=== PATIENT | male | born 1970 | race Caucasian/White ===

== ENCOUNTER 2023-02-27 08:15 | Inpatient (IN) | payer OTHER, SELFPAY ==
[2023-02-27] VITALS (63 sets, daily range): BP systolic 117–238; BP diastolic 110–147; PULSE 85–116; RESP 11–31; TEMP 36.4–36.5; O2SAT 87–100; BMI 35.3
--- NOTE | 2023-02-27 | ECHO_ITS ---
Patient Info Name: Dave Cooper Age: 52 years : 1970 Gender: Male Ht: 70 in Wt: 240 lbs BSA: 2.36 m2 HR: 94 bpm BP: 169 / 125 mmHg Heart Rhythm: Sinus Rhythm Technical Quality: Fair Exam Date: 02/27/2023 4:20 PM Exam Location: Echo Lab Exam Room: [place] [id number] Patient Status: Inpatient Admit Date: 02/27/2023 Staff Ordering Physician: Abril Perez APRN Stopper Maker Helper: Elizabeth Mcginnis RDCS Attending Provider: Dany Avila MD Referring Physician: Ana CHANDLER; Exam Type: CA echo dop color flow w con Study Info Indications - NEW HEART FAILURE Complete two-dimensional, color flow and Doppler transthoracic echocardiogram is performed with contrast to opacify the left ventricle and to improve the deliniation of the left ventricle endocardial borders. Contrast/Agitated Saline Contrast/Ag. Saline: Definity Amount: 2.00 ml Administered By: Elizabeth Mcginnis [facility] Existing IV Access: Yes IV Access Condition: patent with no signs of infiltration Summary 1. Technically difficult exam, definity contrast used to improve visualization. 2. Concentric left ventricular hypertrophy with mild LV enlargement and mildly depressed systolic function. 3. Enlarged left atrium. 4. Structurally normal appearing mitral valve with moderate MR. Left Ventricle Left ventricular chamber dimension is mildly enlarged. Left ventricular systolic function is mildly reduced, estimated at 45-50%. There is mild concentric increased left ventricular wall thickness. The left ventricular diastolic function is grade I diastolic dysfunction. Right Ventricle Right ventricular chamber dimension is normal. Left Atria Left atrial chamber dimension is moderately enlarged. Right Atria Right atrial chamber dimension is normal. Aortic Valve The aortic valve is normal. Pulmonic Valve The pulmonic valve is not well visualized. Mitral Valve The mitral valve has normal leaflets. There is moderate mitral valve regurgitation. Tricuspid Valve The tricuspid valve leaflets are normal. Pericardium/Pleural The pericardium appears normal. Aorta The aortic root size at the sinus of Valsalva is normal. Left Ventricular Outflow Tract Name Value Normal LVOT 2D LVOT Diameter 2.15 cm LVOT Doppler LVOT Peak Gradient 5 mmHg LVOT Mean Gradient 3 mmHg LVOT VTI 15.51 cm LVOT VTI/AV VTI Ratio 0.83 LVOT Stroke Volume 56.08 ml LVOT CO 17.17 l/min LVOT CI 7.28 L/min/m2 Pulmonic Valve Name Value Normal RVOT Doppler RVOT Peak Gradient 1 mmHg PV Doppler PV Peak Gradient 2 mmHg Mitral Valve
--- NOTE | ~2023-02-27 | CT_ITS ---
EXAMINATION: CTA chest PE protocol DATE: 02/27/2023 12:12 INDICATION: Shortness of breath TECHNIQUE: Computed tomography angiography (CTA) of the chest was performed with 100 mL Omnipaque-350 intravenous contrast timed to evaluate the pulmonary arteries. Coronal maximum intensity projection 3D-reconstructions were created by the technologist. The dose-length product (DLP) was 891.07 mGy-cm. Automated exposure control and iterative reconstruction technique were employed. COMPARISON: None. FINDINGS: The pulmonary arteries are well-opacified. No pulmonary embolism is identified. There are s mall pleural effusions. No pneumothorax is identified. Cardiomegaly is noted. There is mild emphysema . There is smooth interlobular septal thickening of the lung bases. There are minimal groundglass opa cities of the lung bases. There is a 4 mm nodule of the left lower lobe on image 84. There is mild me diastinal and bilateral hilar lymphadenopathy. IMPRESSION: 1. Cardiomegaly with mild pulmonary edema in the lung bases. 2. Small pleural effusions. 3. No pulmonary embolus identified. Reviewed, dictated and finalized at location L. URCE ROOM SPECIAL EDUCATION TEACHER
--- NOTE | ~2023-02-27 | XR_ITS ---
EXAMINATION: XR chest 1V portable INDICATION: Shortness of breath TECHNIQUE: Portable AP chest at 0849 hours COMPARISON: None available FINDINGS: There is a mild diffuse interstitial pattern. Cardiomegaly is noted. There are small pleura l effusions. No pneumothorax is identified. Surgical clips are noted in the neck. IMPRESSION: 1. Cardiomegaly with mild pulmonary edema. 2. Small pleural effusions. Reviewed, dictated and finalized at location D. GAGE BROKER
--- NOTE | ~2023-02-27 | US_ITS ---
EXAMINATION: US retroperitoneal duplex ltd DATE: 03/01/2023 15:08 SUPERVISOR WOOL SHEARING INDICATION: Accelerated hypertension. TECHNIQUE: Sonographic imaging of the kidneys was performed with a 3.5 MHz transducer. Retroperitone al duplex sonogram of the renal arteries also obtained. FINDINGS: No focal flow abnormalities are seen in the renal arteries on color Doppler. The peak syst olic velocity ranges of the right and left renal arteries and aorta are 91 cm per second, 45 cm per s econd, and 95 cm per second, respectively. The velocities and renal to aortic ratios are within guido l limits. Renal echotexture is normal bilaterally without hydronephrosis, mass or stone. Right kidney measures 10 cm. Left kidney measures 11.9 cm. IMPRESSION: 1. No Doppler evidence of renal artery stenosis. Reviewed, dictated and finalized at location A. RVISOR WOOL SHEARING
--- NOTE | ~2023-02-27 | US_ITS ---
EXAMINATION: US renal BI DATE: 02/28/2023 09:45 INDICATION: Hypertension TECHNIQUE: Multiple grayscale and Doppler ultrasound images of the kidneys were obtained. COMPARISON: None. FINDINGS: The right kidney measures 9.9 x 4.9 x 5.2 cm. The left kidney measures 11.1 x 6.1 x 5.3 cm. The kidneys demonstrate normal parenchymal echogenicity. There is no hydronephrosis. The bladder is normal. IMPRESSION: 1. Normal kidneys without hydronephrosis. Reviewed, dictated and finalized at location B. UTER ANIMATOR
--- NOTE | 2023-02-27 08:35 | ECG_ITS ---
Measurements Intervals [place] Rate: 109 P: 43 MA: 120 QRS: 80 QRSD: 146 T: 12 QT: 395 QTc: 533 Interpretive Statements SINUS TACHYCARDIA LEFT ATRIAL ENLARGEMENT [-0.15mV P WAVE IN V1/V2] I RIGHT BUNDLE BRANCH BLOCK ABNORMAL ECG NO PREVIOUS ECG AVAILABLE FOR COMPARISON Electronically Signed On 02-27-2023 17:43:53 MEAT PACKER by Dave Contreras M.D.
[2023-02-27 08:43] LABS: Basophils Absolute Auto 0.1 K/mm3 (0.0-0.1); Basophils Percent Auto 0.5 % (0.2-1.2); Eosinophils Absolute Auto 0.2 K/mm3 (0-0.3); Eosinophils Percent Auto 1.3 % (0-4.4); Hematocrit 39.7 % (42.0-52.0); Hemoglobin 12.6 g/dL (14.0-18.0); Immature Granulocyte Absolute 0.05 K/mm3 (0.00-0.031); Immature Granulocyte Percent A 0.4 % (0-0.5); Lymphocytes Absolute Auto 2.18 K/mm3 (0.9-3.2); Lymphocytes Percent Auto 17.7 % (18.3-44.2); Mean Corpuscular HGB Conc 31.7 g/dl (32-36); Mean Corpuscular Hemoglobin 26.4 pg (26-34); Mean Corpuscular Volume 83.2 fl (80-100); Mean Platelet Volume 8.8 fl (7.4-10.4); Monocytes Absolute Auto 0.8 K/mm3 (0.1-0.6); Monocytes Percent Auto 6.5 % (2.6-8.5); Neutrophils Absolute Auto 9.1 K/mm3 (1.3-6.7); Neutrophils Percent Auto 73.6 % (45.5-73.1); Platelet Count Result 294 k/mm3 (150-375); Red Blood Count 4.77 M/mm3 (4.6-6.20); White Blood Count 12.3 K/mm3 (4.5-10.0)
[2023-02-27 08:52] LABS: Alanine Aminotransferase 43 U/L (6-50); Albumin Level 4.3 g/dL (3.5-5.1); Alkaline Phosphatase 117 U/L (38-126); Anion Gap 8 mmol/L (8-16); Aspartate Amino Transferase 31 U/L (17-59); Bilirubin,Total 0.6 mg/dL (0.2-1.3); Blood Urea Nitrogen 22 mg/dL (9-20); Carbon Dioxide 26 mmol/L (22-30); Chloride 105 mmol/L (98-107); Estimated CRCL calculation 57 ml/min; Estimated Glomerular Filt Rate 43; Glucose 138 mg/dL (65-110); Potassium 3.5 mmol/L (3.4-5.0); Sodium 139 mmol/L (137-145)
[2023-02-27 09:01] LABS: Prothrombin Time 13.5 Seconds (11.1-14.7)
[2023-02-27 09:06] LABS: NT Pro B Type Natriuretic Pept 6270 pg/mL (19.9-100); Troponin I 0.118 ng/mL (0.000-0.034)
[2023-02-27 09:10] LABS: Partial Thromboplastin Time 29.2 SECONDS (22.3-36.8)
[2023-02-27 09:28] LABS: Influenza A QL RT-PCR Negative (Negative); Influenza B QL RT-PCR Negative (Negative); RSV RNA, RT-PCR Negative (Negative); SARS-CoV-2 RNA PCR Negative (Negative)
[2023-02-27] MEDS: LABETALOL HCL INJ 100 MG/20 ML VIAL 20 MG IV PUSH ×2 (10:21→17:33)
[2023-02-27] MEDS: FUROSEMIDE INJ 40 MG/4 ML VIAL IV PUSH ×2 (10:21→20:20)
[2023-02-27 10:24] LABS: Magnesium 2.2 mg/dL (1.6-2.3)
--- NOTE | 2023-02-27 10:32 | ED.GENADULT ---
HPI - General Adult General Chief complaint: Upper Respiratory Infection <DENISE Leahy Last Filed: 02/27/23 14:46> Stated complaint: CONGESTION X2WKS <DENISE Leahy Last Filed: 02/27/23 14:46> Time Seen by Provider: 02/27/23 08:56 <DENISE Leahy Last Filed: 02/27/23 14:46> Source: patient <DENISE Leahy Last Filed: 02/27/23 14:46> Mode of arrival: ambulatory <DENISE Leahy Last Filed: 02/27/23 14:46> Limitations: no limitations <DENISE Leahy Last Filed: 02/27/23 14:46> History of Present Illness HPI narrative: Patient is a 52-year-old male, with past medical history of hypertension, CAD status post coronary stenting in 2011, who presents the ED with report of shortness of breath. Patient reports over the last 3 weeks he has been feeling increasingly short of breath, worse with exertion and lying flat. He also reports chest congestion, mild BLE swelling, occasional cough. Denies sick contacts. Denies chest pain. Denies fevers. Patient notes that he has been out of his home medications for the last several months. He states he does not have a primary care doctor. 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 Per med rec, medications include Plavix, simvastatin, lisinopril, sertraline, Trazodone, sildenafil. Patient does not routinely monitor blood pressures at home. <Arabella Calvillo PA-C - Last Filed: 02/27/23 14:46> Related Data Allergies/adverse reactions: Allergies Allergy/AdvReac Type Severity Reaction Status Date / Time No Known Allergies Allergy Verified 02/27/23 08:34 <DENISE Leahy Last Filed: 02/27/23 14:46> Review of Systems Review of Systems: CONSTITUTIONAL: Denies fever, chills, or sweats. ENT: See HPI CARDIOVASCULAR: See HPI. RESPIRATORY: See HPI. GASTROINTESTINAL: Denies abdominal pain, nausea, vomiting. NEUROLOGIC: Denies headache, dizziness, numbness, or weakness. <Arabella Cavlillo PA-C - Last Filed: 02/27/23 14:46> All systems reviewed & are unremarkable except as noted in HPI and below <Arabella Calvillo PA-C - Last Filed: 02/27/23 14:46> [facility] Social History Social History: Social History Smoking packs per day: 0.5 Smoking cigarettes per day: 10.0 Years smoked: 30 Smoking pack-years: 15.00 Smoking status: Current every day smoker Alcohol intake: never Substance use: never Do You Feel Safe in your Home?: Yes Lack of Transportation: No Lack of Food: Never True Current Housing: I Have Housing Concerned About Future Housing: No Difficulty Paying Gas/Electric Bills: No Difficulty Paying for Meds: No Currently Unemployed: No Education: High School Diploma/GED Difficulty w/ Childcare or Family Care: No Spiritual care concerns: No <Arabella Calvillo PA-C - Last Filed: 02/27/23 14:46> Exam Narrative: GENERAL: Well appearing, obese with BMI of 34.5, non-toxic, in no acute distress. HEAD: Normocephalic, atraumatic. RESPIRATORY: Airway patent, respirations nonlabored. Rhonchi throughout the bases bilaterally. CARDIOVASCULAR: Tachycardic with regular rhythm without murmurs, rubs, or gallops. Radial pulses 2+ ABDOMINAL: Soft, nontender, nondistended. Normoactive BS. MUSCULOSKELETAL: Moves all extremities. No gross deformities. Trace pitting edema throughout lower extremities bilaterally. No significant calf tenderness. SKIN: Warm, dry, normal color. NEURO: A&O X3. Speech clear. Cranial nerves II-XII grossly intact. Steady gait. No ataxic movements. PSYCHIATRIC: Appropriate mood and affect. Normal interaction. <Arabella Calvillo PA-C - Last Filed: 02/27/23 14:46> Course TIMBER WATCHMAN/PA Physician Supervision TIMBER WATCHMAN/PA discussed patient with me including HPI, vital signs, and results of labs and CXR. I concur with management
--- NOTE | 2023-02-27 11:13 | ECG_ITS ---
Measurements Intervals [place] Rate: 91 P: 55 [place]: 124 QRS: 84 QRSD: 143 T: 44 QT: 432 QTc: 533 Interpretive Statements SINUS RHYTHM WITH PACS LEFT ATRIAL ENLARGEMENT [-0.15mV P WAVE IN V1/V2] RIGHT BUNDLE BRANCH BLOCK ABNORMAL ECG WARNING: DATA QUALITY MAY AFFECT INTERPRETATION COMPARED TO ECG 02/27/2023 08:45:58 NO DIFFERENCE Electronically Signed On 02-27-2023 17:57:36 RESERVATION MANAGER by Dave Contreras M.D.
[2023-02-27 12:11] LABS: Troponin I 0.117 ng/mL (0.000-0.034)
--- NOTE | 2023-02-27 13:19 | PC.NURSE ---
called dietary and ordered a lunch tray for pt at this time
--- NOTE | 2023-02-27 14:51 | ECG_ITS ---
Measurements Intervals [place] Rate: 89 P: 5 NE: 154 QRS: 78 QRSD: 146 T: 52 QT: 441 QTc: 537 Interpretive Statements SINUS RHYTHM RIGHT BUNDLE BRANCH BLOCK ABNORMAL ECG COMPARED TO ECG 02/27/2023 11:40:38 NO DIFFERENCE Electronically Signed On 02-27-2023 18:08:37 INNER LAYER SCRUBBER TENDER by Dave Contreras M.D.
[2023-02-27 15:23] LABS: Troponin I 0.106 ng/mL (0.000-0.034)
--- NOTE | 2023-02-27 16:31 | PC.NURSE ---
called dietary and requested dinner tray for pt at this time
[2023-02-27] MEDS: PERFLUTREN LIPID MICROSPHERES 1.5 ML VIAL DILUTED TO 10 ML TOTAL VOLUME IV PUSH (16:45)
--- NOTE | 2023-02-27 17:01 | IVDEFINITY ---
Prior to administration of IV Definity the patient was educated on the risks and benefits of the imaging enhancing agent including potential adverse side effects. The patient verbalized understanding. Allergies were verified. No exclusion criteria were identified and at least one of the following inclusion criteria were met: 1) physician request, 2) patient technically difficult to image (per the [place] [employer] Echocardi[employer] guidelines of two or more segments not discernable within the apical view), or 3) questionable left ventricular function. ?
--- NOTE | 2023-02-27 17:15 | PC.NURSE ---
BP 208/146. Pt asymptomatic. SADIQ Samuels made aware. New orders noted. Target BP 170s/110s. Only give Lisinopril if BP remains elevated. Do not drop BP >40 points.
--- NOTE | 2023-02-27 17:27 | ADMGEN ---
This patient, Dave Cooper, was admitted to IMU Room 205-02. Patient/family oriented to hospital policies and general routines including ID bracelet, bed and alarms, visiting hours, pain management, procedures, bathroom and other care routines, personal items, smoking policy, room service/diet, and visiting hours. Information on how to activate the Rapid Response Team has been discussed. Patient/Family are encouraged to report perceived risks to care and to ask questions if they do not understand what they are told or what they should do.
--- NOTE | 2023-02-27 20:14 | PM.IMHP ---
H&P: HPI History of Present Illness Date/Time: 02/27/23 20:14 Chief Complaint: Shortness of breath Narrative: This is a 52-year-old male with past medical history significant for hypertension, coronary artery disease, obstructive sleep apnea on CPAP at nighttime, patient smokes half pack of cigarettes daily, presents to the emergency room due to shortness of breath, chest congestion, leg swelling, for the last 2 weeks which has gotten worse, patient states that he has been out of his meds for his hypertension and has been uncontrolled has been reading high numbers at home. Denies any chest pain, syncope, near syncope, lightheadedness, dizziness, no PND, no orthopnea, no nausea, no vomiting no abdominal pain, no headaches, no vision changes. Preliminary workup was significant for brain natriuretic peptide upwards 6000, troponins x2 minimally elevated, patient was rule out for acute pulmonary embolism with a negative CT angiogram of the chest. Chemistry panel showed a BUN of 22 and creatinine of 1.5. Upon presentation to emergency room patient had systolic blood pressure of 238 over diastolic of 142. At the time of my visit patient denied any complaints. EXAMINATION: XR chest 1V portable INDICATION: Shortness of breath TECHNIQUE: Portable AP chest at 0849 hours COMPARISON: None available FINDINGS: There is a mild diffuse interstitial pattern. Cardiomegaly is noted. There are small pleural effusions. No pneumothorax is identified. Surgical clips are noted in the neck. IMPRESSION: 1. Cardiomegaly with mild pulmonary edema. 2. Small pleural effusions. EXAMINATION: CTA chest PE protocol DATE: 02/27/2023 12:12 INDICATION: Shortness of breath TECHNIQUE: Computed tomography angiography (CTA) of the chest was performed with 100 mL Omnipaque-350 intravenous contrast timed to evaluate the pulmonary arteries. Coronal maximum intensity projection 3D-reconstructions were created by the technologist. The dose-length product (DLP) was 891.07 mGy-cm. Automated exposure control and iterative reconstruction technique were employed. COMPARISON: None. FINDINGS: The pulmonary arteries are well-opacified. No pulmonary embolism is identified. There are small pleural effusions. No pneumothorax is identified. Cardiomegaly is noted. There is mild emphysema. There is smooth interlobular septal thickening of the lung bases. There are minimal groundglass opacities of the lung bases. There is a 4 mm nodule of the left lower lobe on image 84. There is mild mediastinal and bilateral hilar lymphadenopathy. IMPRESSION: 1. Cardiomegaly with mild pulmonary edema in the lung bases. 2. Small pleural effusions. 3. No pulmonary embolus identified. [facility] Social History Social History Smoking packs per day: 0.5 Smoking cigarettes per day: 10.0 Years smoked: 30 Smoking pack-years: 15.00 Smoking status: Current every day smoker Alcohol intake: never Substance use: never Do You Feel Safe in your Home?: Yes Lack of Transportation: No Lack of Food: Never True Current Housing: I Have Housing Concerned About Future Housing: No Difficulty Paying Gas/Electric Bills: No Difficulty Paying for Meds: No Currently Unemployed: No Education: High School Diploma/GED Difficulty w/ Childcare or Family Care: No Spiritual care concerns: No Meds Home Medications and Allergies Home Medications Medication Instructions Recorded Confirmed Type carvedilol 6.25 mg tablet 6.25 mg PO BID 02/27/23 02/27/23 History clopidogrel 75 mg tablet 75 mg PO DAILY 02/27/23 02/27/23 History lisinopril 20 mg tablet 20 mg PO DAILY 02/27/23 02/27/23 History sertraline 100 mg tablet 100 mg PO DAILY 02/27/23 02/27/23 History simvastatin 40 mg tablet 40 mg PO HS 02/27/23 02/27/23 History trazodone 100 mg tablet 100 mg PO HS 02/27/23 02/27/23 History Allergies Allergy/AdvReac Type Severity
[2023-02-28] VITALS (21 sets, daily range): BP systolic 112–197; BP diastolic 67–141; PULSE 65–99; RESP 18–24; TEMP 36.1–36.6; O2SAT 98–100
[2023-02-28] MEDS: FUROSEMIDE INJ 40 MG/4 ML VIAL IV PUSH (08:33)
[2023-02-28] MEDS: CLOPIDOGREL BISULFATE 75 MG TABLET PO (08:33)
[2023-02-28] MEDS: SERTRALINE HCL 50 MG TABLET 100 MG PO (08:33)
[2023-02-28] MEDS: lisinopriL 20 MG TABLET PO (08:33)
[2023-02-28] MEDS: carvediloL 6.25 MG TABLET PO (08:33)
[2023-02-28 09:09] LABS: Basophils Absolute Auto 0.1 K/mm3 (0.0-0.1); Basophils Percent Auto 0.5 % (0.2-1.2); Eosinophils Absolute Auto 0.2 K/mm3 (0-0.3); Hematocrit 40.5 % (42.0-52.0); Hemoglobin 13.2 g/dL (14.0-18.0); Immature Granulocyte Absolute 0.05 K/mm3 (0.00-0.031); Immature Granulocyte Percent A 0.5 % (0-0.5); Lymphocytes Absolute Auto 1.91 K/mm3 (0.9-3.2); Lymphocytes Percent Auto 17.4 % (18.3-44.2); Mean Corpuscular HGB Conc 32.6 g/dl (32-36); Mean Corpuscular Hemoglobin 26.6 pg (26-34); Mean Corpuscular Volume 81.7 fl (80-100); Mean Platelet Volume 9.1 fl (7.4-10.4); Monocytes Absolute Auto 0.7 K/mm3 (0.1-0.6); Monocytes Percent Auto 6.1 % (2.6-8.5); Neutrophils Absolute Auto 8.1 K/mm3 (1.3-6.7); Neutrophils Percent Auto 73.5 % (45.5-73.1); Platelet Count Result 322 k/mm3 (150-375); Red Blood Count 4.96 M/mm3 (4.6-6.20); Red Cell Distribution Width 15.2 % (11.5-14.5)
[2023-02-28 09:19] LABS: Alanine Aminotransferase 38 U/L (6-50); Albumin Level 4.1 g/dL (3.5-5.1); Alkaline Phosphatase 121 U/L (38-126); Anion Gap 10 mmol/L (8-16); Aspartate Amino Transferase 24 U/L (17-59); Bilirubin,Total 0.7 mg/dL (0.2-1.3); Blood Urea Nitrogen 24 mg/dL (9-20); Carbon Dioxide 25 mmol/L (22-30); Chloride 103 mmol/L (98-107); Estimated CRCL calculation 57 ml/min; Estimated Glomerular Filt Rate 43; Glucose 142 mg/dL (65-110); Magnesium 2.3 mg/dL (1.6-2.3); Potassium 3.6 mmol/L (3.4-5.0); Sodium 138 mmol/L (137-145)
--- NOTE | 2023-02-28 10:11 | PM.CNCAR ---
Assessment and Plan Assessment and plan (1) Acute CHF (congestive heart failure): Qualifiers: Heart failure type: unspecified Qualified Code(s): I50.9 - Heart failure, unspecified Code(s): I50.9 - Heart failure, unspecified Status: Acute (2) Hypertensive urgency: Code(s): I16.0 - Hypertensive urgency Status: Acute Plan This is a 52-year-old man with decompensated congestive heart failure due to compliance with medical regimen he has significant underlying hypertension as well as a history of previous percutaneous revascularization more than 10 years ago. I would recommend continuing his lisinopril, his carvedilol dosage will be increased and I will transition him from clopidogrel to aspirin since he has not had any recent PCI. I believe he can also be transition to an oral dose of furosemide since he is rapidly becoming euvolemic with IV furosemide since yesterday. Anticipate discharge in the next 24-48 hours as he stabilizes. We will follow him up in the office regarding his coronary disease and LV dysfunction after discharge. I expect that his mitral valve regurgitation will improve with improvement in his hypertension in hopefully more compliance with medical treatment and follow-up. Obviously smoking cessation is also extremely important Dave Contreras MD [facility] History of Present Illness History of Present Illness Consult date/time: 02/28/23 10:11 Reason For Visit: New onset CHF, elev Trop, WOOD, HTN urgency Narrative: This is a 52-year-old man I am asked to see at the request of the hospitalist today because of decompensated congestive heart failure. He is unknown to me prior to this consultation and otherwise has been unknown to physicians here at [facility]. He does have a history of longstanding hypertension as well as a history of coronary artery disease with previous percutaneous revascularization. He states that he was receiving his medical care in the [facility] area but moved here last year. About 6 months ago he ran out of his medications since he did not have a physician and over the last 3-4 weeks has been noticing that he has been experiencing symptoms of worsening shortness of breath this began with shortness of breath with exertion and for the last couple of days he was having symptoms of nocturnal dyspnea and orthopnea. He came into the emergency room with these complaints and was found to have very high blood pressure and evidence of left-sided congestive heart failure. She was treated with furosemide as well as lisinopril and low doses of carvedilol and feels much better this morning. The patient states that he has a history of coronary artery disease with percutaneous revascularization by cascade operator in [facility] about 10-12 years ago. He states that at the last follow-up visit with his physician there was told that his cardiac status appeared to be stable. He has also been chronically hypertensive his hypertension history predates his coronary disease history he also has history of cigarette smoking used to smoke about 2 packs per day now he smokes about half a pack per day. 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 He is not reporting any chest pain pressure or heaviness. His electrocardiogram shows sinus rhythm with right bundle branch block. Echocardiogram was done yesterday which demonstrates modest LV enlargement with left ventricular hypertrophy and systolic function slightly reduced in the range of 45%. He has a normal appearing mitral valve with moderate MR. Review of Systems Constitutional: Constitutional: Reports no additional constitutional complaints Eyes: Eyes: Reports no additional eye complaints ENT: Reports system reviewed and no additional complaints, except as documented Cardiovascular: Cardiovascular: Reports as per HPI Respiratory: Respiratory: Reports as per HPI Gastrointestinal: Gas
--- NOTE | 2023-02-28 16:53 | PM.IMPN ---
Progress Note: A&P Assessment and Plan (1) Acute CHF (congestive heart failure): Qualifiers: Heart failure type: unspecified Qualified Code(s): I50.9 - Heart failure, unspecified Code(s): I50.9 - Heart failure, unspecified Status: Acute Assessment and Plan: Patient with acute diastolic CHF. Patient presents with congestion. EKG shows sinus tachycardia with left atrial enlargement and right bundle branch block. No old EKGs to compare. Repeat EKG showing no significant change. Chest x-ray showed cardiomegaly with mild pulmonary edema and small pleural effusions. BNP was 6270. He was started on IV Lasix. Echocardiogram shows concentric LVH with mild LV enlargement and mildly depressed systolic function with EF of 45-50%. He has grade 1 diastolic dysfunction. Has a structurally normal appearing mitral valve with moderate mitral regurgitation. Cardiology was consulted. It was felt his hypertension is the contributing factor for his acute CHF. Blood pressure is better controlled with reinstating his home medications. Lasix has been decreased to oral. If blood pressure remains stable overnight, we planned discharge tomorrow. (2) Hypertensive urgency: Code(s): I16.0 - Hypertensive urgency Status: Acute Assessment and Plan: Patient's blood pressure was 234/147 on admission. He has been out of his home medications for about 6 months. We have resumed his Coreg and lisinopril. Blood pressure has improved with the systolic blood pressure of mostly 150-180. Continue to allow for permissive hypertension at this time. Continue to monitor. (3) Elevated troponin: Code(s): R79.89 - Other specified abnormal findings of blood chemistry Status: Acute Assessment and Plan: Troponin elevated on admission to 0.12. Troponin has trended downward from there. Fell elevated troponin related to CHF and severe hypertension. EKG showing no ischemic changes. Echo showing no wall motion abnormalities. (4) CHAD (acute kidney injury): Code(s): N17.9 - Acute kidney failure, unspecified Status: Acute Assessment and Plan: Creatinine elevated 1.7. On repeat creatinine unchanged. Renal ultrasound showing no acute findings but does note that the right kidney is smaller than the left. This could be physiologic but consider renal artery stenosis. Will check renal Doppler. (5) Mitral valve regurgitation: Code(s): I34.0 - Nonrheumatic mitral (valve) insufficiency Status: Acute Assessment and Plan: As above. Will need outpatient monitoring. (6) Dyspnea on exertion: Code(s): R06.09 - Other forms of dyspnea Status: Acute Assessment and Plan: Related to the CHF. As above. (7) Obstructive sleep apnea on CPAP: Code(s): G47.33 - Obstructive sleep apnea (adult) (pediatric) Status: Acute Assessment and Plan: CPAP continue. (8) Tobacco dependence: Code(s): F17.200 - Nicotine dependence, unspecified, uncomplicated Status: Acute Assessment and Plan: Patient was educated about the benefits of smoking cessation Subjective Date/time seen: 02/28/23 16:53 Interval history: 52yo male with HTN and CAD here for congestion and found to have elevated BP. He has been out of his mediactions for 6 months. Assuming care. Chart reviewed. Patient states his blood pressure normally runs 140/110 on home medications. He has been out of his medications for about 6 months. He continues to smoke half a pack a day. He feels better today. Exam Narrative: AF 97.0 169/102 89 24 98% ra Gen - NARD Chest - CTA bilaterally, nml RR CV - RRR S1/S2 with 2/6 systolic murmur loudest at the apex. Tele showing PVCs Abd - Soft, NT/ND, Positive BS Ext - No pedal edema Psych - Nml mood and affect Skin - Warm and dry Objective Data Vital Signs Vital Signs: Vital Signs - 24 hr 02/08
[2023-02-28] MEDS: SIMVASTATIN 20 MG TABLET 40 MG PO (20:45)
[2023-02-28] MEDS: hydrALAZINE HCL 20 MG/ML VIAL 10 MG IV PUSH (20:45)
[2023-02-28] MEDS: traZODone HCL 50 MG TABLET 100 MG PO (20:45)
[2023-02-28] MEDS: carvediloL 25 MG TABLET PO (20:45)
[2023-03-01] VITALS (13 sets, daily range): BP systolic 127–187; BP diastolic 80–115; PULSE 69–88; RESP 16–20; TEMP 36.2–36.6; O2SAT 96–98
[2023-03-01 05:31] LABS: Anion Gap 10 mmol/L (8-16); Blood Urea Nitrogen 29 mg/dL (9-20); Calcium 8.8 mg/dL (8.4-10.2); Carbon Dioxide 25 mmol/L (22-30); Chloride 105 mmol/L (98-107); Estimated CRCL calculation 57 ml/min; Estimated Glomerular Filt Rate 43; Glucose 93 mg/dL (65-110); Potassium 3.3 mmol/L (3.4-5.0); Sodium 140 mmol/L (137-145)
[2023-03-01] MEDS: SERTRALINE HCL 50 MG TABLET 100 MG PO (08:35)
[2023-03-01] MEDS: carvediloL 25 MG TABLET PO (08:36)
[2023-03-01] MEDS: ASPIRIN 81 MG ENTERIC TABLET PO (08:36)
[2023-03-01] MEDS: FUROSEMIDE 20 MG TABLET PO (08:36)
[2023-03-01] MEDS: lisinopriL 20 MG TABLET PO (08:36)
--- NOTE | 2023-03-01 14:16 | PM.PNCARD ---
Progress Note: A&P Assessment and Plan (1) Acute CHF (congestive heart failure): Qualifiers: Heart failure type: unspecified Qualified Code(s): I50.9 - Heart failure, unspecified Code(s): I50.9 - Heart failure, unspecified Status: Acute Assessment and Plan: Acute on chronic CHF, ischemic cardiomyopathy, due to noncompliance with meds. Patient has diuresed, improved, euvolemic --okay for discharge from my point of view --continue lisinopril, carvedilol, furosemide --will arrange for outpatient follow-up in our office --encourage patient to also find a PMD (2) Hypertensive urgency: Code(s): I16.0 - Hypertensive urgency Status: Acute Assessment and Plan: Blood pressure still running high but hopefully will settle down in the next few days. --continue lisinopril, carvedilol, furosemide (3) CAD (coronary artery disease): Code(s): I25.10 - Atherosclerotic heart disease of [place] coronary artery without angina pectoris Status: Acute Assessment and Plan: History of CAD, mi, ischemic cardiomyopathy. Stable without angina. --continue aspirin and simvastatin. Subjective Date/time seen: 03/01/23 14:16 Interval history: Follow-up for acute on chronic CHF, mitral regurgitation, hypertension and noncompliance. History of CAD. EF 45%. 02/28/2023: IV Lasix changed to p.o.. Continue lisinopril, increase carvedilol, change clopidogrel to aspirin. Date of service 03/01/2023: Patient feeling well, ambulating up and down the halls with no shortness of breath. Blood pressure variable come systolic 127-187 mmHg. On room air. Renal function stable but hypokalemic. Review of Systems Review of Systems: No shortness of breath, chest discomfort, abdominal pain, leg problems, lightheadedness Exam Const: General: cooperative, healthy appearing and comfortable; No confusion Orientation/consciousness: oriented to person, patient oriented x3 and No confusion HENMT: Mouth: Yes moist mucous membranes Eyes: General: appearance normal, both eyes and all related structures Neck: Neck: supple Resp: Effort & Inspection: normal respiratory effort Auscultation: clear to auscultation bilaterally Cardio: Rate: regular rate Rhythm: regular rhythm Heart sounds: no murmurs GI: Inspection: normal to inspection GI Palp: No abdominal tenderness Skin: General skin exam: normal color Neuro: General: oriented to person, patient oriented x3 and No confusion Extrem: Right lower extremity: edema Left lower extremity: edema Other: Trace pretibial edema Psych: Appearance: grossly normal Mental Status: mental status grossly normal Objective Data Vital Signs Vital Signs: Vital Signs - 24 hr 02/28/23 16:00 02/28/23 16:20 02/28/23 17:17 Temperature 97.6 F Pulse Rate 89 Respiratory Rate 20 Blood Pressure 180/124 H 176/107 H Pulse Oximetry 98 Oxygen Delivery Room Air 02/28/23 16:00 02/28/23 18:00 02/28/23 19:57 Temperature 97.8 F Pulse Rate 86 91 92 Respiratory Rate 18 Blood Pressure 193/117 H Pulse Oximetry 98 Oxygen Delivery 02/28/23 20:45 02/28/23 20:00 02/28/23 20:00 Temperature Pulse Rate 92 98 Respiratory Rate Blood Pressure Pulse Oximetry 98 Oxygen Delivery Room Air 02/28/23 22:00 02/28/23 23:32 03/01/23 00:00 Temperature 97.8 F Pulse Rate 85 85 80 Respiratory Rate 18 Blood Pressure 132/67 Pulse Oximetry 98 Oxygen Delivery 03/01/23 00:00 03/01/23 02:00 03/01/23 04:00 Temperature Pulse Rate 79 80 Respiratory Rate Blood Pressure Pulse Oximetry 98 Oxygen Delivery Room Air 03/01/23 04:00 03/01/23 05:08 03/01/23 06:00 Temperature 97.8 F Pulse Rate 81 80 Respiratory Rate 18 Blood Pressure 163/102 H Pulse Oximetry 98 98 Oxygen Delivery Room Air 03/01/23 07:47 03/01/23 07:49 03/01/23 08:36 Temperature 97.5 F L Pulse Rate 85 88
--- NOTE | 2023-03-01 15:12 | PM.DS ---
DS: Admitting Diagnosis Discharge Date 03/01/23 Admitting Diagnosis Shortness of breath DS: Discharge Diagnosis Discharge Diagnosis (1) Acute CHF (congestive heart failure): Qualifiers: Heart failure type: unspecified Qualified Code(s): I50.9 - Heart failure, unspecified Code(s): I50.9 - Heart failure, unspecified Status: Acute (2) Hypertensive urgency: Code(s): I16.0 - Hypertensive urgency Status: Acute (3) Elevated troponin: Code(s): R79.89 - Other specified abnormal findings of blood chemistry Status: Acute (4) CHAD (acute kidney injury): Code(s): N17.9 - Acute kidney failure, unspecified Status: Acute (5) Mitral valve regurgitation: Code(s): I34.0 - Nonrheumatic mitral (valve) insufficiency Status: Acute (6) Dyspnea on exertion: Code(s): R06.09 - Other forms of dyspnea Status: Acute (7) Obstructive sleep apnea on CPAP: Code(s): G47.33 - Obstructive sleep apnea (adult) (pediatric) Status: Acute (8) Tobacco dependence: Code(s): F17.200 - Nicotine dependence, unspecified, uncomplicated Status: Acute DS: Summary Hospital Course Reason for hospitalization: 52yo male with HTN and CAD here for shortness of breath and found to have elevated BP. He has been out of his medications for 6 months. Please see H&P for details. Hospital Course: Patient presents with shortness of breath and congestion.? EKG shows sinus tachycardia with left atrial enlargement and right bundle branch block.? No old EKGs to compare.? Repeat EKG showing no significant change.? Chest x-ray showed cardiomegaly with mild pulmonary edema and small pleural effusions.? BNP was 6270.? He was started on IV Lasix.? Echocardiogram shows concentric LVH with mild LV enlargement and mildly depressed systolic function with EF of 45-50%.? He has grade 1 diastolic dysfunction.? He has a structurally normal appearing mitral valve with moderate mitral regurgitation.? Cardiology was consulted.?Patient's blood pressure was 234/147 on admission.? He has been out of his home medications for about 6 months.? We resumed his Coreg and lisinopril.? Blood pressure has improved with the systolic blood pressure of mostly 150-180 to allow for permissive hypertension. Patient with acute diastolic CHF.? It was felt his hypertension is the contributing factor for his acute CHF.? Treated with IV Lasix then Lasix was decreased to oral.?Troponin elevated on admission to 0.12.? Troponin has trended downward from there.? Fell elevated troponin related to CHF and severe hypertension.? EKG showing no ischemic changes.? Echo showing no wall motion abnormalities. Creatinine elevated 1.7.? On repeat creatinine unchanged.? Renal ultrasound showing no acute findings but does note that the right kidney is smaller than the left.?Dulpex doppler negative for renal artery stenosis.?Patient was educated about the benefits of smoking cessation. He overall did well and was able to be discharged on 03/01/23. Status at Discharge Cognitive/behavioral status at discharge: stable Time Spent with Patient Time attestation: Total time spent providing and/or coordinating discharge services: 38 minutes Time spent: Greater than 30 minutes Exam Narrative: AF 97.1 127/80 76 20 96% ra Gen - NARD Chest - CTA bilaterally, nml RR CV - RRR S1/S2 with 2/6 systolic murmur loudest at the apex. Tele showing PVCs Abd - Soft, NT/ND, Positive BS Ext - No pedal edema Psych - Nml mood and affect. alert and appropriate Skin - Warm and dry DS: Data Data Completed and Pending Labs on day of discharge: Labs from last 24 hours 03/01/23 04:27 Sodium 140 Potassium 3.3 L Chloride 105 Carbon Dioxide 25 Anion Gap 10 BUN 29 H Creatinine 1.70 H Estim Creat Clear Calc 57 Estimated GFR 43 L Glucose 93 Calcium 8.8 Discharge Plan Discharge Attending physician on discharge:
== END 2023-03-01 16:00 | disposition home or self-care (01) | DRG 291 ==
LOC: ANHED 10:59 → ANHIMU 15:24
PROVIDERS: Student in an Organized Health Care Education/Training Program; Admitting Provider Internal Medicine; Emergency Provider Physician Assistant; Visit Provider Internal Medicine
DX: I11.0 Hypertensive heart disease with heart failure (principal); I50.33 Acute on chronic diastolic (congestive) heart failure; N17.9 Acute kidney failure, unspecified; I16.0 Hypertensive urgency; Z91.148 Patient's other noncompliance with medication regimen for other reason; I25.5 Ischemic cardiomyopathy; I25.10 Atherosclerotic heart disease of native coronary artery without angina pectoris; F17.210 Nicotine dependence, cigarettes, uncomplicated; E87.6 Hypokalemia; E66.9 Obesity, unspecified; Z20.822 Contact with and (suspected) exposure to COVID-19; I45.10 Unspecified right bundle-branch block; I34.0 Nonrheumatic mitral (valve) insufficiency; G47.33 Obstructive sleep apnea (adult) (pediatric); Z68.34 Body mass index [BMI] 34.0-34.9, adult; Z95.5 Presence of coronary angioplasty implant and graft; I25.2 Old myocardial infarction
CPT/HCPCS: 36415; 71045; 71275; 76775; 80048; 80053; 83735; 83880; 84484; 85025; 85380; 85610; 85730; 87637; 93005; 93976; 96374; 96375; 99285; A9270; C8929; G0378; J0360; J1940; Q9957; Q9967